=== PATIENT | female | born 1955 | race Two or more races ===

== ENCOUNTER → 2016-07-02 | Outpatient (CLI) | payer OTHER, BC ==
[2010-09-15 12:26] VITALS: BP 132/78
[2016-07-02 09:37] LABS: HEMOGLOBIN A1C 5.97 % (4.2-6.0); MEAN BLOOD GLUCOSE (CALC) 112.801 mg/dL
[2016-07-02 09:40] LABS: HEMATOCRIT 41.9 % (37.0-47.0); MEAN CORPUSCULAR HEMOGLOBIN 29.9 PG (27-31); MEAN CORPUSCULAR HGB CONC 33.4 g/dL (33-37); MEAN PLATELET VOLUME 9.7 FL (7.4-12.2); RDW COEFFICIENT OF VARIATION 12.5 % (11.5-14.5); RED BLOOD COUNT 4.69 10^6/uL (4.20-5.40); WHITE BLOOD COUNT 5.39 10^3/uL (4.8-10.8)
== END ==
LOC: LAB 09:14
PROVIDERS: ATTEND Family Medicine
DX: R73.9 Hyperglycemia, unspecified (principal); R53.82 Chronic fatigue, unspecified
CPT/HCPCS: 36415; 82728; 83036; 83540; 83550; 85027

== ENCOUNTER → 2016-09-14 | Outpatient (CLI) | payer OTHER, BC ==
[2010-09-15 12:26] VITALS: BP 132/78
== END ==
LOC: MOB LAB 12:37
PROVIDERS: ATTEND Nurse Practitioner Family
DX: Z80.41 Family history of malignant neoplasm of ovary (principal); R05 Cough; Z78.0 Asymptomatic menopausal state; K42.9 Umbilical hernia without obstruction or gangrene
CPT/HCPCS: 36415; 86304; 99214; G0463

== ENCOUNTER → 2016-09-21 | Outpatient (CLI) | payer OTHER, BC ==
[2010-09-15 12:26] VITALS: BP 132/78
--- NOTE | 2016-09-21 13:37 | DI ---
[facility] CHEST X-RAY, 09/21/2016 1:06 PM : Clinical History: Cough. Previous Exam: 04/12/2012. There is no acute soft tissue or bony abnormality. There is cardiomegaly without CHF. Lungs are clear . Mediastinal structures are normal. There are no pulmonary nodules. Readin. There is no acute infiltrate or effusion. 2. Cardiomegaly without CHF.
== END ==
LOC: RAD 12:59
PROVIDERS: ATTEND Family Medicine
DX: R05 Cough (principal); I51.7 Cardiomegaly
CPT/HCPCS: 71010

== ENCOUNTER → 2016-11-04 | Outpatient (CLI) | payer OTHER, BC ==
[2010-09-15 12:26] VITALS: BP 132/78
[2016-11-04 12:04] LABS: BLOOD UREA NITROGEN 14 mg/dL (7-22); BUN/CREATININE RATIO 15.55 (6-20); CALCIUM 9.3 mg/dL (8.7-10.7); EST GLOMERULAR FILTRATION > 60 (>60 ml/min/1.73m(2)); MAGNESIUM 1.9 mg/dL (1.6-2.4)
--- NOTE | 2016-11-04 13:33 | EKG ---
[address] [address] Measurements Intervals [place] Rate: 50 P: 2 CT: 152 QRS: -15 QRSD: 104 T: 40 QT: 453 QTc: 426 Interpretive Statements SINUS BRADYCARDIA No previous ECG available for comparison Electronically Signed On 11-04-16 15:27:54 MDT by Kevin Jay [id number]
--- NOTE | 2016-11-06 15:19 | HOLTER ---
[facility] [place] Interpretive Statements Forty eight hour holter study in this [age] year old female for palpitations. Event diary kept of activity with one episode of chest burning also recorded but no palpitations. The average heart rate was 63 with maximum sinus rate of 118 and minimum rate of 41. Heart rate responses were appropriate for level of activity.There were 171,205 beats recorded with 175,992 normal beats. There were 189 single VPCs with 2 epiodes of ventricular bigeminey but no runs. There were 24 PACs with 16 singlets, 4 pairs but no runs. No significant pauses, atrial fibrillation or diagnostic ST-T changes noted. One episode of chest burning was recorded with no ECG changes. IMP: Mildly abnormal holter study with rare VPCs and PACs with no correlation with symptoms. No medical therapy indicated for arrthymia. Electronically Signed On 11-08-16 18:42:48 MDT by Kevin Jay [id number]
== END ==
LOC: EKG 11:33
PROVIDERS: ATTEND Family Medicine
DX: R00.2 Palpitations (principal); R00.1 Bradycardia, unspecified
CPT/HCPCS: 36415; 80053; 83735; 93005; 93010; 93225; 93226; 93227